=== PATIENT | male | born 1955 | race Caucasian/White ===

== ENCOUNTER → 2020-03-24 10:23 | Outpatient (BNVA) | payer MEDICARE, OTHER, SELFPAY | PROVIDERS: Referring Provider Family Medicine; Visit Provider Orthopaedic Surgery | DX: M25.569 Pain in unspecified knee (principal); M17.0 Bilateral primary osteoarthritis of knee; M25.462 Effusion, left knee | CPT/HCPCS: 73560; 73565 ==

== ENCOUNTER → 2020-08-17 08:03 | Outpatient (BNVA) | payer MEDICARE, OTHER, SELFPAY | PROVIDERS: Visit Provider Nurse Practitioner Family | DX: Z20.828 Contact with and (suspected) exposure to other viral communicable diseases (principal) | CPT/HCPCS: 87635 ==

== ENCOUNTER → 2021-12-06 08:00 | Outpatient (BNVA) | payer MEDICARE, OTHER, SELFPAY | PROVIDERS: Visit Provider Podiatrist Foot & Ankle Surgery | DX: S86.002A Unspecified injury of left Achilles tendon, initial encounter (principal); X58.XXXA Exposure to other specified factors, initial encounter; M79.672 Pain in left foot | CPT/HCPCS: 73630 ==

== ENCOUNTER 2022-11-15 09:58 | Outpatient (CLI) | payer MEDICARE, OTHER, SELFPAY ==
--- NOTE | 2022-11-15 10:14 | XR_ITS ---
WS: [id number] Chest 2 views, 11/15/2022 Clinical Data: chronic cough Comparison: PA and lateral chest, 10/08/2008. Findings: No nodules, masses or effusions are seen. The heart is normal. The pulmonary vascularity is not increased. No pneumonia or pneumothorax is seen. The aortic arch and descending thoracic aorta s how tortuosity. There are orthopedic anchors in both shoulders. XR/XR chest 2V* [id number] Impression: Atherosclerosis.
== END 2022-11-15 09:59 | disposition home or self-care (01) ==
LOC: RAD 10:02
PROVIDERS: PCP Family Medicine; Visit Provider Family Medicine
DX: R05.9 Cough, unspecified (principal); I70.90 Unspecified atherosclerosis
CPT/HCPCS: 71046; 80053; 80061; 85025

== ENCOUNTER 2023-03-21 11:56 | Emergency (ER) | payer MEDICARE, OTHER, SELFPAY ==
[2023-03-21] VITALS (21 sets, daily range): BP systolic 114–194; BP diastolic 59–111; PULSE 86–132; RESP 16–31; TEMP 37.7–39.6; O2SAT 93–96
--- NOTE | 2023-03-21 12:06 | XRR_ITS ---
PROCEDURE INFORMATION: Exam: XR Chest Exam date and time: 03/21/2023 12:19 PM Age: 68 years old Clinical indication: Cough; Additional info: Dyspnea/cough TECHNIQUE: Imaging protocol: Radiologic exam of the chest. Views: 1 view. COMPARISON: CR XR chest 2V* [id number] 11/15/2022 10:19 AM FINDINGS: Lungs: Unremarkable. No consolidation. Pleural spaces: Unremarkable. No pleural effusion. No pneumothorax. Heart/Mediastinum: Unremarkable. No cardiomegaly. Bones/joints: Unremarkable. XR/XR chest 1V portable [id number] IMPRESSION: No acute findings.
--- NOTE | 2023-03-21 12:17 | W.ED.GENADLT ---
HPI - General Adult General: Chief complaint: Arrhythmia/Palpitations Stated complaint: SHAKING Time Seen by Provider: 03/21/23 12:05 Source: patient Mode of arrival: EMS History of Present Illness: 68-year-old male presents to the emergency room with complaints of shaking and having a headache. States he seemed to be his usual self over the weekend yesterday had some diarrhea has generalized muscle aches and weakness. The diarrhea has already resolved she has not had any cough or sinus congestion. He does note that he has had frequency of urination for the last 2 days although he is not had any burning no hematuria. Denies chest or abdominal pain. No flank pain. Onset (ago): hour(s) Relieving factors: none Exacerbating factors: none Associated symptoms: Reports decreased appetite, fevers/chills and malaise; Deny chest pain, confusion, cough, diaphoresis, dyspnea, headache(s), nausea, rash, palpitations, seizures, short of breath, syncope, vomiting or weakness Treatments prior to arrival: none Review of Systems Const: Reports: fever(s), chills and malaise; Denies: diaphoresis Card: Denies: chest pain, palpitations or syncope Resp: Denies: dyspnea GI: Denies: abdominal pain, nausea or vomiting : Reports: urinary frequency; Denies: flank pain, dysuria or urinary urgency Musc: Denies: neck pain or back pain Skin/Breast: Denies: rash Neuro: Denies: headache(s) or confusion [facility] ED PFSH: Medical History Elevated blood pressure reading without diagnosis of hypertension Osteoarthritis of knees, bilateral Social History Smoking and tobacco status: never smoked Alcohol intake: current Alcohol intake frequency: holidays/special occasions only Substance/Drug Use: never Physical Exam Const: GENERAL APPEARANCE: cooperative and comfortable ORIENTATION/CONSCIOUSNESS: Yes awake, Yes oriented to person, Yes oriented to place and Yes oriented to time HENMT: COMMON NORMALS: normocephalic, atraumatic and hearing grossly normal bilaterally HEAD & SCALP: normocephalic and atraumatic Resp: COMMON NORMALS: normal respiratory effort, No retractions, No use of accessory muscles and clear to auscultation bilaterally AUSCULTATION: clear to auscultation bilaterally Cardio: COMMON NORMALS: regular rate, regular rhythm and No murmurs present (Cardio) RATE: regular rate RHYTHM: regular rhythm GI: COMMON NORMALS: Soft to palpation and No hepatosplenomegaly present AUSCULTATION: Yes normoactive bowel sounds PALPATION: Yes Soft to palpation, No Tenderness to palpation present (GI), No Guarding due to palpation present (GI) and Yes No hepatosplenomegaly present Extremity: COMMON NORMALS: normal to inspection, capillary refill normal, no clubbing, cyanosis or edema, no calf tenderness and no pedal edema Neuro: SENSORIUM/ORIENTATION: Yes oriented to person, Yes oriented to place and Yes oriented to time Skin: COMMON NORMALS: no rashes or lesions noted GENERAL SKIN EXAM: no rashes or lesions noted Course Vital Signs: Vital signs: Vital Signs Temperature 99.8 F H 03/21/23 16:28 Pulse Rate 86 03/21/23 16:45 Respiratory Rate 16 03/21/23 16:45 Blood Pressure 122/80 03/21/23 16:45 Pulse Oximetry 96 03/21/23 16:45 Oxygen Delivery Me thod Room Air 03/21/23 11:57 MDM - General Adult Medical Decision Making Patient has various for upper respiratory symptoms and generalized malaise body aches and diarrhea suggestive of COVID. COVID was negative but enterovirus was positive fever resolved spontaneously does have a mild cystitis and is symptomatic of same with frequent urination. He is feeling much better after fluids we will discharge home on oral antibiotics supportive cares Tylenol or Profen return if is further problems. Medical Records I reviewed the patient's medical records. Lab Data I reviewed the patient's lab results. 03/21/23 12:10 03/21/23 12:10 Radiology Impressions Chest X-Ray 03/21/23 12:06 IMPRESSION: No acute findings. Laboratory Results WBC 7.3 10^3/uL (4.0-10.0) 03/21/23 12:10 RBC 5.10 10^6/uL (4.1-5.3) 03/21/23 12:10 Hgb 15.7 g/dL (11.7-16.6) 03/21/23 12:10 Hct 46.3 % (42.0-52.0) 03/21/23 12:10 MCV 90.8 fl (80-94) 03/21/23 12:10 MCH 30.8 pg (28.0-34.0) 03/21/23 12:10 MCHC 33.9 g/dL (30.0-36.0) 03/21/23 12:10 RDW 12.8 % (12.1-15.1) 03/21/23 12:10 Plt Count 189 10^3/cmm (130-400) 03/21/23 12:10 MPV 10.3 fL (7.4-10.4) 03/21/23 12:10 Neut % (Auto) 80.6 % 03/21/23 12:10 Lymph % (Auto) 8.8 % 03/21/23 12:10 [place] % (Auto) 8.9 % 03/21/23 12:10 Eos % (Auto) 0.7 % 03/21/23 12:10 Baso % (Auto) 0.3 % 03/21/23 12:10 Neut # (Auto) 5.90 10^3/uL (1.8-7.7) 03/21/23 12:10 Lymph # (Auto) 0.6 10^3/uL (0.8-4.8) L 03/21/23 12:10 [place] # (Auto) 0.7 10^3/uL (0.2-0.9) 03/21/23 12:10 Eos # (Auto) 0.1 10^3/uL (0.0-0.8) 03/21/23 12:10 Baso # (Auto) 0.0 10^3/uL (0.0-0.1) 03/21/23 12:10 Nucleated RBC % (auto) 0 % 03/21/23 12:10 Nucleated RBCs # 0.0 /100WBC 03/21/23 12:10 Sodium 137 mmol/L (136-145) 03/21/23 12:10 Potassium 4.2 mmol/L (3.5-5.1) 03/21/23 12:10 Chloride 104 mmol/L (98-107) 03/21/23 12:10 Carbon Dioxide 21 mmol/L (22-29) L 03/21/23 12:10 Anion Gap 16.2 (5-19) 03/21/23 12:10 BUN 31 mg/dL (8-23) H 03/21/23 12:10 Creatinine 1.3 mg/dL (0.7-1.2) H 03/21/23 12:10 GFR Calculation 54.9 mL/min (90-130) L 03/21/23 12:10 Glucose 161 mg/dL (65-115) H 03/21/23 12:10 Calculated Osmolality 294 mOsm/kg (285-295) 03/21/23 12:10 Lactic Acid 1.9 mmol/L (0.5-2.2) 03/21/23 12:10 Calcium 8.7 mg/dL (8.5-10.5) 03/21/23 12:10 Total Bilirubin 0.9 mg/dL (0.15-1.2) 03/21/23 12:10 AST 48 U/L (0-40) H 03/21/23 12:10 ALT 38 U/L (0-41) 03/21/23 12:10 Alkaline Phosphatase 90 U/L (40-130) 03/21/23 12:10 Total Protein 6.6 g/dL (6.6-8.7) 03/21/23 12:10 Albumin 3.7 g/dL (3.5-5.2) 03/21/23 12:10 Globulin 2.9 g/dL (1.3-4.6) 03/21/23 12:10 Urine Color Yellow (Yellow) 03/21/23 14:08 Urine Appearance Hazy (CLEAR) A 03/21/23 14:08 Urine pH 5 (5-7) 03/21/23 14:08 Ur Specific [place] 1.030 (1.005-1.030) 03/21/23 14:08 Urine Protein 1+ (Negative) H 03/21/23 14:08 Urine Glucose (UA) Norm (Normal) 03/21/23 14:08 Urine Ketones Negative (Negative) 03/21/23 14:08 Urine Blood 2+ (Negative) H 03/21/23 14:08 Urine Nitrate Positive (Negative) H 03/21/23 14:08 Urine Bilirubin Neg (Negative) 03/21/23 14:08 Prot Sulfosalicylic Acd Cancelled 03/21/23 12:12 Urine Urobilinogen Norm mg/dL (Negative) 03/21/23 14:08 Ur Leukocyte Esterase 1+ (Negative) H 03/21/23 14:08 Urine RBC 0-4 /hpf (0-2) H 03/21/23 14:08 Urine WBC 5-10 /hpf (0-5) H 03/21/23 14:08 Ur Squamous Epith Cells 0-4 /hpf (0-5) H 03/21/23 14:08 Uric Acid Crystals 0-4 /hpf 03/21/23 14:08 Amorphous Sediment Not Reportable 03/21/23 14:08 Urine Bacteria 1+ /hpf (NONE) H 03/21/23 14:08 Urine Opiates Screen Negative ng/mL (Negative) 03/21/23 12:12 Ur Barbiturates Screen Negative ng/mL (Negative) 03/21/23 12:12 Ur Phencyclidine Scrn Negative ng/mL (Negative) 03/21/23 12:12 Ur Amphetamines Screen Negative ng/mL (Negative) 03/21/23 12:12 U Benzodiazepines Scrn Negative ng/mL (Negative) 03/21/23 12:12 Urine Cocaine Screen Negative ng/mL (Negative) 03/21/23 12:12 U Marijuana (THC) Screen Negative ng/mL (Negative) 03/21/23 12:12 Coronavirus 229E (PCR) Not detected (NOT DETECT) 03/21/23 12:16 Human Metapneumovir PCR Not detected (NOT DETECT) 03/21/23 15:53 Entero/Rhino (PCR) Detected (NOT DETECT) A 03/21/23 15:53 SARS-CoV-2 (PCR) Not detected (NOT DETECT) 03/21/23 12:16 Discharge Plan Discharge Patient Disposition: Home Clinical Impression: Viral URI, Cystitis Condition: Stable Prescriptions: New Bactrim DS 800-160 mg tablet 1 tab PO DAILY 10 Days Qty: 20 0RF Discharge Orders: Discharge ED (Routine); Ordered 03/21/23 Ordered By: Delgado William Referrals: Williams Nichols DO [Primary Care Provider] - Discharge Diet: Usual diet Discharge Activity: Increase activity as tolerated Patient Instructions: Opioid Safety, Pain Management Activity Restrictions/Additional Instructions: You were seen today with a fever and urinary tract symptoms. Your respiratory swab was positive for rhinovirus which is likely the cause of your fever. You also had moderate urinary tract symptoms and UA showed a mild bladder infection your total white count was normal. Use Tylenol ibuprofen supportive cares for the viral upper respiratory infection and you can start on the oral antibiotics for the bladder infection 1 pill twice daily for 10 days follow-up with your primary care doctor if not improving. Coding Level of Care Code ED Stiff St[employer]her for Estrella Tejada
[2023-03-21 12:30] LABS: Basophils % 0.3 %; Eosinophils # 0.1 10^3/uL (0.0-0.8); Eosinophils % 0.7 %; Hematocrit 46.3 % (42.0-52.0); Hemoglobin 15.7 g/dL (11.7-16.6); Lymphocytes # 0.6 10^3/uL (0.8-4.8); Lymphocytes % 8.8 %; Mean Corpuscular HGB Conc 33.9 g/dL (30.0-36.0); Mean Corpuscular Hemoglobin 30.8 pg (28.0-34.0); Mean Corpuscular Volume 90.8 fl (80-94); Mean Platelet Volume 10.3 fL (7.4-10.4); Monocytes # 0.7 10^3/uL (0.2-0.9); Monocytes % 8.9 %; Neutrophils % 80.6 %; Nucleated Red Blood Cells % 0 %; Platelet Count 189 10^3/cmm (130-400); Red Cell Distribution Width 12.8 % (12.1-15.1); White Blood Count 7.3 10^3/uL (4.0-10.0)
[2023-03-21 12:56] LABS: Lactic Sepsis W/Reflex 1.9 mmol/L (0.5-2.2)
[2023-03-21 12:57] LABS: Alanine Aminotransferase 38 U/L (0-41); Albumin Level 3.7 g/dL (3.5-5.2); Alkaline Phosphatase 90 U/L (40-130); Anion Gap 16.2 (5-19); Aspartate Amino Transferase 48 U/L (0-40); Blood Urea Nitrogen 31 mg/dL (8-23); Calcium 8.7 mg/dL (8.5-10.5); Carbon Dioxide 21 mmol/L (22-29); Chloride 104 mmol/L (98-107); Globulin 2.9 g/dL (1.3-4.6); Glomerular Filtration Rate 54.9 mL/min (90-130); Glucose 161 mg/dL (65-115); Osmolality Calculated 294 mOsm/kg (285-295); Potassium 4.2 mmol/L (3.5-5.1); Sodium 137 mmol/L (136-145); Total Bilirubin 0.9 mg/dL (0.15-1.2); Total Protein 6.6 g/dL (6.6-8.7)
[2023-03-21 13:14] LABS: Amphetamines Screen Urine Negative (Negative); Barbiturates Screen Urine Negative (Negative); Benzodiazepines Screen Urine Negative (Negative); Cocaine Screen Urine Negative (Negative); Opiate Screen Urine Negative (Negative); PCP Screen Urine Negative (Negative); THC Screen Urine Negative (Negative)
--- NOTE | 2023-03-21 14:48 | ECG_ITS ---
[facility] Test Date: 2023-03-21 Pat Name: Max Hedrick Department: Room: Gender: Male International Nurse: : 1955 Requested By: Delgado Huynh Order Number: [id number] Ronna MD: Abdiaziz Rodriguez M.D. Measurements Intervals [place] Rate: 123 P: 46 [place]: 183 QRS: 68 QRSD: 94 T: 17 QT: 308 QTc: 441 Interpretive Statements SINUS TACHYCARDIA NONSPECIFIC T-WAVE ABNORMALITY No previous ECG available for comparison Electronically Signed On 03-21-2023 16:57:54 CDT by Abdiaziz Rodriguez M.D. [id number]
[2023-03-21 14:50] LABS: Adenovirus Not Detected (NOT DETECT); Chlamydia Pneumoniae Not Detected (NOT DETECT); Coronavirus 229E,HKU1,NL63,OC4 Not Detected (NOT DETECT); Human Metapneumovirus Not Detected (NOT DETECT); Human Rhinovirus/Enterovirus Detected (NOT DETECT); Influenza A Not Detected (NOT DETECT); Influenza A H1 Not Detected (NOT DETECT); Influenza A H1-2009 Not Detected (NOT DETECT); Influenza A H3 Not Detected (NOT DETECT); Influenza B Not Detected (NOT DETECT); Mycoplasma Pneumoniae Not Detected (NOT DETECT); Parainfluenza Virus Type 1 Not Detected (NOT DETECT); Parainfluenza Virus Type 2 Not Detected (NOT DETECT); Parainfluenza Virus Type 3 Not Detected (NOT DETECT); Parainfluenza Virus Type 4 Not Detected (NOT DETECT); Respiratory Syncytial Virus A Not Detected (NOT DETECT); Respiratory Syncytial Virus B Not Detected (NOT DETECT); SARS-COV-2 Not Detected (NOT DETECT)
[2023-03-21 15:54] LABS: Add Urine Microscopic? YES; Bilirubin Urine Neg (Negative); Blood Urine 2+ (Negative); Glucose Urine UA Norm (Normal); Ketones Urine Negative (Negative); Leukocyte Esterase Urine 1+ (Negative); Nitrate Urine Positive (Negative); Protein Urine 1+ (Negative); Urine Appearance Hazy (CLEAR); Urine Color Yellow (Yellow); Urobilinogen Urine Norm (Negative); pH Urine 5 (5-7)
[2023-03-21 15:55] LABS: Bacteria Urine 1+ /hpf; RBC Urine 0-4 /hpf (0-2); Squamous Epithelial Cell Urine 0-4 /hpf (0-5); Uric Acid Crystals Urine 0-4 /hpf
[2023-03-21 15:56] LABS: Add Urine Culture? Yes
[2023-03-21 15:59] LABS: Human Metapneumovirus Not Detected (NOT DETECT); Human Rhinovirus/Enterovirus Detected (NOT DETECT); Results from GEN
[2023-03-21] MEDS: acetaminophen 500 mg Tablet 1000 MG PO (16:02)
[2023-03-21] MEDS: sodium chloride 0.9% 1,000 ML 999 ML IV (16:02)
== END 2023-03-21 16:56 | disposition home or self-care (01) ==
PROVIDERS: Emergency Provider Family Medicine; PCP Family Medicine
DX: J06.9 Acute upper respiratory infection, unspecified (principal); N30.90 Cystitis, unspecified without hematuria; Z20.822 Contact with and (suspected) exposure to COVID-19
CPT/HCPCS: 36415; 71045; 80053; 80306; 81001; 83605; 85025; 87040; 87077; 87086; 87186; 87635; 87801; 93005; 99285; J7030